=== PATIENT | female | born 1985 | race Caucasian/White ===

== ENCOUNTER 2017-06-03 14:45 | Emergency (ER) | payer SELFPAY ==
[~2017-06-03] VITALS: Ht 157.5 cm; Wt 71.7 kg
[2017-06-03 15:14] VITALS: BP 112/68
--- NOTE | 2017-06-03 16:39 | NUR ---
PT PRESENTS TO ER W/C/O DIZZINESS SINCE THIS AM.FEELS NAUSEATED BUT DENIES VOMITTING;SKIN IS PINK/WARM/DRY; AAOX4 WITH EVEN AND STEADY GAIT; LUNGS CLEAR BL; HR EVEN AND REGULAR; PT DENIES ANY FEVER, CP, SOB, OR COUGH AT THIS TIME; PATIENT STATES PAIN OF 0/10 AT THIS TIME;PATIENT POSITIONED FOR COMFORT; HOB ELEVATED; BEDRAILS UP X2; BED DOWN. ER MD MADE AWARE OF PT STATUS.
[2017-06-03] MEDS ORDERED: MECLIZINE 25 MG TAB PO ONE (17:15)
--- NOTE | 2017-06-03 17:20 | NUR ---
WENT TO CT SCAN ACCOMPANIED BY TECH.
--- NOTE | 2017-06-03 17:35 | NUR ---
BACK FROM CT SCAN ACCOMPANIED BY GISSEL.
--- NOTE | 2017-06-03 18:17 | NUR ---
PT RESTING ON BED;NO ACUTE DISTRESS NOTED.WILL CONTINUE TO MONITOR PT.
--- NOTE | 2017-06-03 18:52 | NUR ---
Patient discharged with v/s stable. Written and verbal after care instructions given and explained.Patient alert, oriented and verbalized understanding of instructions. Ambulatory with steady gait. All questions addressed prior to discharge. ID band removed. Patient advised to follow up with PMD. Rx of MECLIZINE given. Patient educated on indication of medication including possible reaction and side effects. Opportunity to ask questions provided and answered.
[2017-06-03 18:53] VITALS: BP 101/69
== END 2017-06-03 18:52 | disposition home or self-care (01) ==
LOC: MED 14:45
DX: R42 Dizziness and giddiness (principal); R20.2 Paresthesia of skin; F48.8 Other specified nonpsychotic mental disorders
CPT/HCPCS: 70450; 81002; 81025; 99284; J8597

== ENCOUNTER 2022-02-20 13:20 | Emergency (ER) | payer MEDICAID ==
[~2022-02-20] VITALS: Ht 157.5 cm; Wt 75.9 kg
[2022-02-20 13:35] VITALS: BP 157/98
--- NOTE | 2022-02-20 13:44 | NUR ---
PT AMB TO BED 11.
--- NOTE | 2022-02-20 14:10 | NUR ---
36 y/o female c/o chest pain s/p panic attack x today. States feeling anxious this morning and began feeling chest pressure and pain that radiates to back of neck and extremities. Denies n/v, fever, chills, sob. States she lost her job recently which has caused increased stress at home. Denies taking medication, uses relaxion techniques and walking for relief. pmh: denies all: cookie
--- NOTE | 2022-02-20 14:20 | NUR ---
Dr Crawford at bedside for evaluation
[2022-02-20] MEDS ORDERED: DICYCLOMINE HCL LIQUID 20 MG, ALUMINUM HYD/MAG/SIMETHICONE 30 ML, LIDOCAINE VISCOUS 2% ... PO ONE ×3 (14:40)
[2022-02-20] MEDS ORDERED: LORazepam 1 MG TAB PO ONE (14:40)
--- NOTE | 2022-02-20 14:44 | NUR ---
lab at bedside
[2022-02-20] MEDS ORDERED: ALUMINUM HYD/MAG/SIMETHICONE 30 ML UDC ONE (14:48)
[2022-02-20] MEDS ORDERED: DICYCLOMINE HCL LIQUID 10 MG/5 ML UDC ONE (14:48)
--- NOTE | 2022-02-20 15:00 | NUR ---
pt declined medication, educated on indications and possible side effects of medication. MD made aware.
[2022-02-20 15:07] LABS: APPEARANCE,URINE CLEAR (CLEAR); BILIRUBIN,URINE NEGATIVE (NEGATIVE); BLOOD, URINE 2+ (NEGATIVE); COLOR,URINE YELLOW (YELLOW); LEUKOCYTE ESTERASE ,URINE NEGATIVE (NEGATIVE); NITRITE, URINE NEGATIVE (NEGATIVE); UGLUCOSE NEGATIVE (NEGATIVE)
[2022-02-20 15:11] LABS: BASOPHILS % (AUTO) 0.4 % (0.0-2.0); EOSINOPHILS # (AUTO) 0.3 K/uL (0-0.4); EOSINOPHILS % (AUTO) 2.4 % (0.0-4.0); LYMPHOCYTES # (AUTO) 1.5 K/uL (2.5-16.5); LYMPHOCYTES % (AUTO) 13.9 % (20.5-51.1); MEAN CORPUSCULAR HEMOGLOBIN 34 pg (27-31); MEAN CORPUSCULAR HGB CONC 36 g/dL (33-37); MEAN CORPUSCULAR VOLUME 94.7 fL (80-94); MONOCYTES # (AUTO) 0.6 K/uL (0.8-1.0); MONOCYTES % (AUTO) 5.4 % (1.7-9.3); NEUTROPHILS # (AUTO) 8.2 K/uL (1.8-7.7); NEUTROPHILS % (AUTO) 77.9 % (42.2-75.2); PLATELET COUNT (AUTO) 276 K/uL (140-450); RED BLOOD CELL COUNT(AUTO) 4.44 MIL/uL (4.20-5.40); RED CELL DISTRIBUTION WIDTH 12.4 % (11.6-13.7); WHITE BLOOD COUNT (AUTO) 10.6 K/uL (4.8-10.8)
[2022-02-20 15:23] LABS: ALBUMIN 3.8 g/dL (3.4-5.0); ANION GAP 13.6 (8-16); ASPARTATE AMINOTRANSFERASE 75 U/L (15-37); CARBON DIOXIDE 24.5 mmol/L (21-32); CHLORIDE 104 mmol/L (98-107); CREATININE 0.8 mg/dL (0.6-1.3); GFR ARICAN-AMERICAN 104 mL/min (>90); GLUCOSE 110 mg/dL (74-106); LIPASE 123 U/L (73-393); POTASSIUM 4.1 mmol/L (3.5-5.1); SODIUM SERUM 138 mmol/L (136-145); TOTAL BILIRUBIN 0.5 mg/dL (0.0-1.0); UREA NITROGEN, BLOOD 10 mg/dL (7-18)
[2022-02-20 15:27] LABS: WBC,URINE 0-5 /HPF (0-5)
[2022-02-20 15:29] LABS: OTHER CASTS, URINE None Seen /LPF (None Seen)
[2022-02-20] MEDS ORDERED: HYDR25CA1 PO (17:06)
[2022-02-20 17:13] VITALS: BP 124/92
--- NOTE | 2022-02-20 17:13 | NUR ---
Patient discharged with v/s stable. Written and verbal after care instructions about living with anxiety given and explained. Patient alert, oriented and verbalized understanding of instructions. Ambulatory with steady gait. All questions addressed prior to discharge. ID band removed. Patient advised to follow up with PMD. Rx of Hydroxyzine given. Patient educated on indication of medication including possible reaction and side effects. Opportunity to ask questions provided and answered.
== END 2022-02-20 13:44 | disposition home or self-care (01) ==
LOC: MED 13:20
DX: K29.70 Gastritis, unspecified, without bleeding (principal); F41.9 Anxiety disorder, unspecified; Z88.0 Allergy status to penicillin
CPT/HCPCS: 36415; 71045; 80053; 81001; 81025; 83690; 84484; 85025; 93005; 99285